=== PATIENT | male | born 1960 | race Caucasian/White ===

== ENCOUNTER 2018-04-04 12:36 | Outpatient (CLI) | payer OTHER ==
--- NOTE | 2018-04-04 13:11 | RAD ---
CHEST 2 VIEWS: HISTORY: Disability evaluation. FINDINGS: Cardiac silhouette is upper limits of normal in size. Pulmonary vasculature is also upper limits of normal. Mediastinum is midline. No lobar consolidation or evidence of pneumothorax. IMPRESSION: No active cardiopulmonary abnormalities are demonstrated. POS: [facility]
--- NOTE | 2018-04-04 13:12 | RAD ---
RIGHT KNEE 2 VIEWS: HISTORY: Disability evaluation. FINDINGS: Complete loss of joint space medial compartment. Moderate tricompartmental osteophytosis. No acute fracture, dislocation, or aggressive osseous erosions. IMPRESSION: Severe osteoarthritic changes medial compartment right knee. POS: [facility]
== END 2018-04-04 12:37 | disposition home or self-care (01) ==
LOC: NAV RAD 12:36
PROVIDERS: ATTEND Family Medicine
DX: Z02.71 Encounter for disability determination (principal); J44.9 Chronic obstructive pulmonary disease, unspecified; M17.0 Bilateral primary osteoarthritis of knee
CPT/HCPCS: 71046